=== PATIENT | female | born 1980 | race American Indian/Alaskan Native ===

== ENCOUNTER 2016-12-19 14:36 | Outpatient (CLI) | payer OTHER, MEDICARE ==
--- NOTE | 2016-12-19 15:06 | XRay Report ---
Bilaterally pelvis: History: Hip and pelvic pain. Findings: No pelvic fracture or lytic or blastic lesion. There is narrowing noted of right hip joint. Subarticular cysts are identified. There is also noted suspicion of avascular necrosis head of the right femur. Mild arthritic changes left hip. No fracture. Impression: Suspicion of avascular necrosis with degenerative changes right hip. Mild degenerative changes left hip. Recommend MRI scan right hip.
== END 2016-12-19 14:37 | disposition home or self-care (01) ==
LOC: SPVIMAG 14:36
PROVIDERS: ATTEND Orthopaedic Surgery Sports Medicine
DX: M16.0 Bilateral primary osteoarthritis of hip (principal)
CPT/HCPCS: 73521